=== PATIENT | male | born 1985 | race Hispanic/Latino ===

== ENCOUNTER 2019-02-24 15:04 | Inpatient (IN) | payer SELFPAY ==
[2019-02-24 16:51] LABS: Amphetamine Detected (NotDetected); Barbiturates Screen Not Detected (NotDetected); Benzodiazepine Screen Not Detected (NotDetected); Cocaine Metabolite Screen Not Detected (NotDetected); Medtox Control Line Valid? VALID (VALID); Medtox Reader # READER 1; Methadone Not Detected (NotDetected); Methamphetamine Detected (NotDetected); Opiate Screen Not Detected (NotDetected); Oxycodone Screen Not Detected (NotDetected); Phencyclidine (PCP) Not Detected (NotDetected); THC/Cannabinoid Screen Detected (NotDetected); Tricyclic Screen Not Detected (NotDetected)
[2019-02-24] MEDS ORDERED: Azithromycin 500 MG VIAL ONE (19:47)
[2019-02-24] MEDS ORDERED: Sodium Chloride 0.9% 100 ML ONE (19:48)
[2019-02-24] MEDS ORDERED: cefTRIAXone\\ROCEPHIN 1 GM VIAL ONE (19:48)
--- NOTE | 2019-02-24 20:01 | RAD ---
PORTABLE CHEST ONE VIEW: 02/24/2019 6:18 p.m. HISTORY: Cough. COMPARISON: 04/14/2010 FINDINGS: The heart size is normal. The lungs are well expanded. There is a mild infiltrate in the right uppe r lobe. No pneumothoraces or pleural effusions are seen. IMPRESSION: Findings are suspicious for pneumonia. POS: [facility]
[2019-02-25] MEDS ORDERED: Acetaminophen 325 MG TAB PO PRN (02:35)
[2019-02-25] MEDS ORDERED: Albuterol Sulfate 1.25 MG/3 ML NEB NEB PRN (02:35)
[2019-02-25] MEDS ORDERED: Ondansetron PF 4 MG/2 ML Vial IVP PRN (02:35)
[2019-02-25] MEDS ORDERED: Guaifenesin DM 100-10/5 ML UDCUP PO PRN (02:35)
[2019-02-25] MEDS ORDERED: Sodium Chloride 0.9% 1,000 ML IV SCH (02:45)
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
[2019-02-25 05:28] LABS: #Eosinphils 0.1 thou/uL (0.0-0.7); #Lymphocytes 1.7 thou/uL (1.20-3.40); #Monocytes 0.4 thou/uL (0.11-0.59); #Neutrophils 1.9 thou/uL (1.40-6.50); %Basophils 1.1 % (0.0-1.0); %Eosinophils 2.7 % (0.0-10.0); %Lymphocytes 40.3 % (21.0-51.0); %Monocytes 10.1 % (0.0-10.0); %Neutrophils 45.8 % (42.0-75.0); Hemoglobin 11.8 g/dL (14.0-18.0); Mean Corpuscular HGB CONC 33.3 g/dL (32.0-36.0); Mean Corpuscular Volume 90.1 fL (78.0-98.0); Mean Platelet Volume 8.5 fL (7.4-10.4); Platelet Count 159 thou/uL (130-400); RBC Distribution Width 12.6 % (11.5-14.5); Red Blood Cell (RBC) Count 3.92 mill/uL (4.70-6.10); White Blood Cell (WBC) Count 4.1 thou/uL (4.8-10.8)
[2019-02-25 05:42] LABS: ALT (SGPT) 15 U/L (8-55); AST (SGOT) 19 U/L (5-34); Albumin 3.4 g/dL (3.5-5.0); Alkaline Phosphatase 58 U/L (40-150); Anion Gap 11 mmol/L (10-20); BUN (Urea Nitrogen) 18 mg/dL (8.9-20.6); Bilirubin, Total 0.2 mg/dL (0.2-1.2); Calc. Creatinine Clearance 0 mL/min (70-130); Calcium 8.3 mg/dL (7.8-10.44); Carbon Dioxide 26 mmol/L (22-29); Chloride 109 mmol/L (98-107); Estimated GFR-MDRD Greater than 90; Globulin 2.3 g/dL (2.4-3.5); Glucose 107 mg/dL (70-105); Potassium 3.6 mmol/L (3.5-5.1); Protein, Total 5.7 g/dL (6.0-8.3); Sodium 142 mmol/L (136-145)
[2019-02-25] MEDS ORDERED: Levofloxacin 500 mg/D5W 100 ml Premix Bag ONE (06:28)
--- NOTE | 2019-02-25 07:36 | CT ---
CT THORAX WITHOUT CONTRAST: INDICATIONS: History of tuberculosis diagnosis with an infiltrate seen on a recent chest radiograph. COMPARISON: Chest radiograph dated 02/24/2019. FINDINGS: There is a cavitary, 4 cm mass within the right upper lobe with surrounding tree-in-bud nodularity. There is mild to moderate paraseptal emphysema involving both lung apices. No additional suspicious pulmonary nodule is evident. No definite enlarged mediastinal lymph nodes are noted. Lack of IV con trast limits evaluation for hilar lymphadenopathy. There are a few shotty appearing lymph nodes with in the axillary regions bilaterally. The visualized adrenal glands are unremarkable appearing. No a cute osseous abnormality is evident. IMPRESSION: 1. Cavitary mass within the right upper lobe, with surrounding tree-in-bud nodularity, is consistent with the patient's history of tuberculosis. Other differential considerations include invasive karthik al disease, such as aspergillus, or cavitary malignancy. Would recommend appropriate therapy and a f ollow-up CT evaluation in 6 to 8 weeks. 2. Paraseptal emphysema of both lung apices. CODE T POS: [facility]
[2019-02-25] MEDS ORDERED: Famotidine 20 MG TAB PO SCH (09:00)
[2019-02-25] MEDS ORDERED: Enoxaparin Sodium 40 MG/0.4 ML SYRINGE SC SCH (09:00)
--- NOTE | 2019-02-25 20:09 | PDOC.EVN ---
Event Note - Event Note Event Note: Patient eloped from the ED prior to being seen.
--- NOTE | 2019-03-01 12:46 | EKG ---
Test Reason : PSYCH Blood Pressure : / mmHG Vent. Rate : 064 BPM Atrial Rate : 064 BPM P-R Int : 154 ms QRS Dur : 096 ms QT Int : 402 ms P-R-T Axes : 073 083 067 degrees QTc Int : 414 ms Normal sinus rhythm Early repolarization Normal ECG Confirmed by KARIN HAYNES DO ([id number]), deputy editor in chief TIANA HARRIS ([id number]) on 03/01/2019 12:45:57 PM Referred By: Confirmed By:KARIN HAYNES DO
== END 2019-02-25 10:16 | disposition left against medical advice (07) | DRG 897 ==
LOC: ERS 15:04 → ERHOLD 19:25
PROVIDERS: ADMIT Internal Medicine; ATTEND Internal Medicine
DX: F15.10 Other stimulant abuse, uncomplicated (principal); N17.9 Acute kidney failure, unspecified; E87.2 Acidosis; R45.851 Suicidal ideations; F12.10 Cannabis abuse, uncomplicated; F19.10 Other psychoactive substance abuse, uncomplicated; F17.210 Nicotine dependence, cigarettes, uncomplicated; Z86.11 Personal history of tuberculosis
CPT/HCPCS: 36415; 51701; 71045; 71250; 80053; 80306; 83605; 85025; 87040; 93005; 96361; 96365; 96367; J0456; J0696; J1956; J3490

== ENCOUNTER 2020-01-25 17:18 | Observation (INO) | payer OTHER, SELFPAY ==
[~2020-01-25 17:18] MED LIST: Iopamidol-370 76% 500 ML 1 ML ONE
[2020-01-25] MEDS ORDERED: Morphine 4 MG/ML VIAL ONE ×2 (17:42→20:31)
[2020-01-25 17:53] LABS: #Basophils 0.1 thou/uL (0.0-0.2); #Eosinphils 0.1 thou/uL (0.0-0.7); #Neutrophils 11.7 thou/uL (1.40-6.50); %Basophils 0.6 % (0.0-1.0); %Eosinophils 0.6 % (0.0-10.0); %Lymphocytes 7.1 % (21.0-51.0); %Monocytes 7.4 % (0.0-10.0); %Neutrophils 84.3 % (42.0-75.0); Hemoglobin 14.1 g/dL (14.0-18.0); Mean Corpuscular Hemoglobin 31.4 pg (27.0-31.0); Mean Corpuscular Volume 92.4 fL (78.0-98.0); Mean Platelet Volume 8.2 fL (7.4-10.4); Platelet Count 208 thou/uL (130-400); Red Blood Cell (RBC) Count 4.47 mill/uL (4.70-6.10); White Blood Cell (WBC) Count 13.9 thou/uL (4.8-10.8)
[2020-01-25] MEDS ORDERED: Ampicillin/Sulbactam 1.5 GM in Sodium Chloride 0.9% 100 ML IVPB SCH (18:00)
[2020-01-25 18:10] LABS: ALT (SGPT) 83 U/L (8-55); AST (SGOT) 45 U/L (5-34); Albumin 4.3 g/dL (3.5-5.0); Alkaline Phosphatase 76 U/L (40-110); Anion Gap 13 mmol/L (10-20); BUN (Urea Nitrogen) 13 mg/dL (8.9-20.6); Bilirubin, Total 0.3 mg/dL (0.2-1.2); Calc. Creatinine Clearance 0 mL/min (70-130); Carbon Dioxide 25 mmol/L (22-29); Chloride 102 mmol/L (98-107); Estimated GFR-MDRD Greater than 90; Globulin 3.1 g/dL (2.4-3.5); Glucose 99 mg/dL (70-105); Lipase 7 U/L (8-78); Protein, Total 7.4 g/dL (6.0-8.3); Sodium 136 mmol/L (136-145)
--- NOTE | 2020-01-25 18:55 | RAD ---
TWO VIEWS LEFT FOREARM: Date: 01-25-2020 History: Injury, trauma, pain. FINDINGS: There is no displaced fracture or evidence of dislocation. IMPRESSION: No acute osseous abnormality. POS: [facility]
--- NOTE | 2020-01-25 18:56 | RAD ---
THREE VIEWS LEFT HAND: Date: 01-25-2020 Comparison: None History: Injury, trauma, pain. FINDINGS: No fracture or evidence of dislocation. No radiopaque foreign body or subcutaneous gas. IMPRESSION: No acute osseous abnormality. POS: [facility]
--- NOTE | 2020-01-25 18:57 | RAD ---
FOUR VIEWS LEFT ELBOW: Date: 01-25-2020 Comparison: None History: Injury, trauma, pain. FINDINGS: The lateral examination demonstrates no elbow joint effusion. No displaced fracture or dislocation. IMPRESSION: No acute fracture or evidence of dislocation. POS: [facility]
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
[2020-01-25] MEDS ORDERED: Dextrose 50% Abboject 50 ML SYRINGE SLOW IVP PRN (20:21)
[2020-01-25] MEDS ORDERED: hydrALAZINE 20 MG/ML VIAL SLOW IVP PRN (20:21)
[2020-01-25] MEDS ORDERED: Dextrose 5% in Water 1,000 ML IV PRN (20:21)
[2020-01-25] MEDS ORDERED: Ondansetron PF 4 MG/2 ML Vial IVP PRN (20:21)
[2020-01-25] MEDS ORDERED: traMADol HCl 50 MG TAB PO PRN (20:27)
[2020-01-25] MEDS ORDERED: Cyclobenzaprine 10 MG TAB PO PRN (20:27)
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
[2020-01-25] MEDS ORDERED: Ketorolac Tromethamine 30 MG/ML VIAL ONE (20:31)
[2020-01-25] MEDS ORDERED: Acetaminophen 500 MG TAB ONE (20:31)
[2020-01-25 20:33] LABS: Lactic Acid 2.1 mmol/L (0.5-2.2)
[2020-01-25] MEDS ORDERED: Sodium Chloride 0.9% 1,000 ML IV SCH (21:00)
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
[2020-01-25 22:13] VITALS: BMI 25.0
[2020-01-25] MEDS: Senokot S 8.6-50 MG TAB PO SCH (22:28)
[2020-01-25] MEDS: Ibuprofen 600 MG TAB PO SCH (22:28)
[2020-01-25] MEDS: Amoxicillin/Potassium Clav 875 MG TAB PO SCH (22:28)
[2020-01-25] MEDS: Morphine 4 MG/ML VIAL SLOW IVP PRN (22:29)
[2020-01-25] MEDS: traMADol HCl 50 MG TAB PO PRN (22:29)
[2020-01-25] MEDS: Gabapentin 300 MG CAP PO SCH (22:29)
[2020-01-26] MEDS: Morphine 4 MG/ML VIAL SLOW IVP PRN ×2 (02:39→08:07)
[2020-01-26] MEDS: traMADol HCl 50 MG TAB PO PRN (03:32)
[2020-01-26] MEDS: Acetaminophen 500 MG TAB PO SCH ×3 (03:32→14:39)
[2020-01-26 05:17] LABS: #Eosinphils 0.3 thou/uL (0.0-0.7); #Lymphocytes 1.6 thou/uL (1.20-3.40); #Monocytes 0.8 thou/uL (0.11-0.59); #Neutrophils 4.7 thou/uL (1.40-6.50); %Basophils 0.5 % (0.0-1.0); %Eosinophils 3.9 % (0.0-10.0); %Lymphocytes 21.7 % (21.0-51.0); %Monocytes 10.2 % (0.0-10.0); %Neutrophils 63.7 % (42.0-75.0); Hemoglobin 12.8 g/dL (14.0-18.0); Mean Corpuscular HGB CONC 34.2 g/dL (32.0-36.0); Mean Corpuscular Hemoglobin 31.7 pg (27.0-31.0); Mean Corpuscular Volume 92.7 fL (78.0-98.0); Mean Platelet Volume 8.3 fL (7.4-10.4); Platelet Count 190 thou/uL (130-400); Red Blood Cell (RBC) Count 4.04 mill/uL (4.70-6.10); White Blood Cell (WBC) Count 7.4 thou/uL (4.8-10.8)
[2020-01-26 05:36] LABS: Anion Gap 10 mmol/L (10-20); BUN (Urea Nitrogen) 12 mg/dL (8.9-20.6); Calc. Creatinine Clearance 132 mL/min (70-130); Calcium 8.5 mg/dL (7.8-10.44); Carbon Dioxide 31 mmol/L (22-29); Chloride 101 mmol/L (98-107); Estimated GFR-MDRD Greater than 90; Glucose 95 mg/dL (70-105); Magnesium 1.9 mg/dL (1.6-2.6); Phosphorus 4.1 mg/dL (2.3-4.7); Potassium 3.8 mmol/L (3.5-5.1); Sodium 138 mmol/L (136-145)
[2020-01-26] MEDS: Ibuprofen 600 MG TAB PO SCH ×2 (05:57→14:39)
[2020-01-26] MEDS: Amoxicillin/Potassium Clav 875 MG TAB PO SCH (08:09)
[2020-01-26] MEDS: Gabapentin 300 MG CAP PO SCH ×2 (08:10→14:39)
[2020-01-26] MEDS: Senokot S 8.6-50 MG TAB PO SCH (08:10)
[2020-01-26] MEDS ORDERED: Polyethylene Glycol 3350 17 GM Packet PO SCH (09:00)
[2020-01-26] MEDS ORDERED: Enoxaparin Sodium 40 MG/0.4 ML SYRINGE SC SCH (09:00)
[2020-01-26] MEDS: traMADol HCl 50 MG TAB PO SCH ×2 (09:32→15:56)
[2020-01-26] MEDS ORDERED: Scopolamine 1.5 mg/72 hour Patch TD SCH (10:00)
[2020-01-26 11:45] VITALS: TEMP 97.4
--- NOTE | 2020-01-26 12:12 | RAD ---
CHEST 1 VIEW PORTABLE: HISTORY: Followup left-sided pneumothorax. FINDINGS: There is some minimal increased lucency in the left apex and medially along the left mediastinum, sky dence for a small residual left-sided pneumothorax. Minimal pleural and parenchymal opacity changes in the right upper lobe which may well represent some scarring or underlying poorly circumscribed mas s but is stable from the 01/25/2020 CT architecture analyst film. Minimal patchy parenchymal changes in the left lowe r lobe and right lower lobe, evidence for subsegmental atelectasis. Nondisplaced left rib fracture. Continued short-term followup. POS: [facility]
[2020-01-26 16:53] VITALS: BP 123/78
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
== END 2020-01-26 17:30 ==
LOC: ERS 17:18 → SURG B 20:27
PROVIDERS: ADMIT Specialist; ATTEND Specialist
DX: S27.321A Contusion of lung, unilateral, initial encounter (principal); S22.42XA Multiple fractures of ribs, left side, initial encounter for closed fracture; S27.0XXA Traumatic pneumothorax, initial encounter; F17.210 Nicotine dependence, cigarettes, uncomplicated; N28.9 Disorder of kidney and ureter, unspecified; Y04.1XXA Assault by human bite, initial encounter; Y04.2XXA Assault by strike against or bumped into by another person, initial encounter; W06.XXXA Fall from bed, initial encounter; Y92.143 Cell of prison as the place of occurrence of the external cause
CPT/HCPCS: 36415; 71045; 71260; 74177; 80048; 80053; 83605; 83690; 83735; 84100; 85025; 94760; 96361; 96365; 96375; 96376; G0378; G0390; J0295; J1650; J1885; J2270; J2405; J3490; Q9967